=== PATIENT | female | born 1955 | race Caucasian/White ===

== ENCOUNTER 2018-11-30 21:59 | Emergency (ER) | payer OTHER ==
[~2018-11-30] VITALS: Ht 162.6 cm; Wt 59.9 kg
[~2018-11-30 21:59] MED LIST: ASPI81CH43 PO; ATOR20TA50 PO; CAR3125T PO; CLOP75TA28 PO; LISI-275 PO
[2018-12-01 03:26] VITALS: BP 142/76
[2018-12-01] MEDS ORDERED: LORazepam 2MG/ML-1ML VIAL IV ONE (03:45)
[2018-12-01] MEDS ORDERED: MORPHINE SULFATE 4 MG/ML SYR/VIAL IV ONE (03:45)
[2018-12-01] MEDS ORDERED: cefTRIAXone 1GM/50ML D5W 50 ML IV ONE (03:45)
[2018-12-01] MEDS ORDERED: ONDANSETRON HCL 4 MG/2 ML VIAL IV ONE (03:45)
[2018-12-01] MEDS ORDERED: LIDOCAINE 1% HCL (LOCAL ANESTH.) INJ 20ML MDV ONE (03:54)
[2018-12-01] MEDS ORDERED: SODIUM CHLORIDE 0.9% 1,000 ML IV ONE (04:00)
== END 2018-12-01 04:38 | disposition home or self-care (01) ==
LOC: ER 22:02
DX: S61.412A Laceration without foreign body of left hand, initial encounter (principal); I10 Essential (primary) hypertension; I25.2 Old myocardial infarction; F17.210 Nicotine dependence, cigarettes, uncomplicated; W01.110A Fall on same level from slipping, tripping and stumbling with subsequent striking against sharp glass, initial encounter; Y93.89 Activity, other specified; Y92.89 Other specified places as the place of occurrence of the external cause; Y99.8 Other external cause status
CPT/HCPCS: 12002; 96365; 96375; 99283; J0696; J2001; J2060; J2270; J2405